=== PATIENT | female | born 1995 | race Caucasian/White ===

== ENCOUNTER 2020-09-03 10:43 | Emergency (ER) | payer OTHER ==
[2020-09-03 11:44] LABS: BILIRUBIN NEGATIVE (NEGATIVE); BLOOD 3+ Ery/uL (NEGATIVE); CLARITY CLEAR (CLEAR); COLOR YELLOW (YELLOW); GLUCOSE (U) NORMAL (NORMAL); LEUKOCYTES 2+ Leu/uL (NEGATIVE); NITRITE NEGATIVE (NEGATIVE); PROTEIN TRACE (LOW) mg/dL (NEGATIVE); SPECIFIC GRAVITY 1.025 (1.001-1.030); UROBILINOGEN 0.2 mg/dL (0.2-1.0)
[2020-09-03 11:44] LABS: BASOPHIL 0.4 % (0-2); EOSINOPHIL 2.8 % (0-5); HGB 14.5 g/dl (12.5-16.0); LYMPHOCYTE 35.4 % (15-48); MCH 28.7 pg (25.0-31.0); MCV 87.1 fL (78.0-100.0); MONOCYTE 4.5 % (0-12); MPV 10.3 fL (6.0-9.5); NEUTROPHIL 56.7 % (41-80); NRBC 0; PLT 211 K/uL (150-400); RBC 5.05 M/uL (4.20-5.40); RDW 12.7 % (11.5-14.0); WBC 8.3 K/uL (4.0-10.5)
[2020-09-03 12:02] LABS: URINARY RBC 20-50
[2020-09-03 12:03] LABS: URINARY WBC 20-50
[2020-09-03 12:04] LABS: BACTERIA TRACE
[2020-09-03 12:07] LABS: BUN/CREAT RATIO (CALC) 20.3 RATIO; CREATININE 0.74 mg/dL (0.51-0.95); POTASSIUM 3.5 mmol/L (3.5-5.1)
[2020-09-03] MEDS ORDERED: KETOROLAC TROME10 MG PO (12:31)
[2020-09-03] MEDS ORDERED: NORCO 5-325 TA1 EACH PO (12:31)
[2020-09-03] MEDS ORDERED: MACROBID100 MG PO (12:36)
== END 2020-09-03 13:00 | disposition home or self-care (01) ==
LOC: FER 10:43
PROVIDERS: Emergency Medicine
DX: N13.6 Pyonephrosis (principal); Z87.442 Personal history of urinary calculi; Z90.49 Acquired absence of other specified parts of digestive tract
CPT/HCPCS: 36415; 80048; 81001; 85025; 87076; 87088; 87186; J1885